=== PATIENT | female | born 1940 | race African-American/Black ===

== ENCOUNTER → 2016-07-21 | Outpatient (CLI) | payer OTHER, MEDICARE | LOC: RAD 04:24 | DX: Z12.31 Encounter for screening mammogram for malignant neoplasm of breast (principal) ==

== ENCOUNTER → 2016-07-28 | Outpatient (CLI) | payer OTHER, MEDICARE | LOC: ULTRA 10:37 | DX: N63 Unspecified lump in breast (principal) ==

== ENCOUNTER → 2016-08-02 | Outpatient (CLI) | payer OTHER, MEDICARE ==
--- NOTE | ~2016-08-02 | S ---
[facility] [place] [address] SURGICAL PATH RPT PROCEDURE Name: LIV JAMES Room #: REG BETITO Noreen.#: [id number] Admission: 08/02/16 Date of : 44 Discharge: Report #: [id number] Path Case #: [id number] PATHOLOGY REPORT COLLECTION DATE: 08/02/2016 RECEIVED DATE: 08/02/2016 SUBMITTING PHYS: Dr. Ricky Edmonds OTHER PHYS: Dr. Donaldo Parker SPECIMEN(S) RECEIVED: A.Lt breast at 2:00, 4 cm FN * * * * * * * * * * * * FINAL DIAGNOSIS: Breast, left breast 2:00, 4.0 cm from nipple, needle core biopsy: - Fibrocystic changes with dense stromal fibrosis, fibroadenoma associated with calcifications (measuring 8.0 mm in greatest dimensions), as well as adenosis and fat necrosis. - Negative for atypia or malignancy. COMMENT: Co-review: Dr. Nisa King (IUV:mgr; d/t: 08/03/16) PATHOLOGIST: Marianela Kuhn M.D. REPORT ELECTRONICALLY SIGNED BY: Marianela Kuhn M.D. DATE/TIME: 08/03/2016 14:06 * * * * * * * * * * * * GROSS PATHOLOGY: Received in formalin labeled "Liv James, left breast biopsy 2:00 4 cm," are multiple needle cores of yellow-hutton fibrofatty tissue measuring 3.2 x 2.2 x 0.4 cm in aggregate dimensions. The tissue is submitted in its entirety in cassette A1 and A2. The cold ischemic time is 5 minutes. The total formalin fixation time is 11 hours and 26 minutes. (CAA; 08/02/2016) CLINICAL HISTORY: Left breast mass INITIAL CPT CODE(S): A; [address] [facility] [place] [address] SURGICAL PATH RPT PROCEDURE Name: LIV JAMES Room #: REG Tanmay Sorto.#: [id number] Admission: 08/02/16 Date of : 44 Discharge: Report #: [id number] Path Case #: [id number] Professional services performed by [facility] at [address] , [place] [address] Technical services performed by [facility] at [address] [place] [address], [facility] [address] [address]. [facility] [address] [place] [address] PHONE: [phone] DIRECTOR: Twin Mitchell M.D. * * * END OF REPORT * * *
== END | disposition home or self-care (01) ==
LOC: ULTRA 07:47
DX: D24.2 Benign neoplasm of left breast (principal); N63 Unspecified lump in breast

== ENCOUNTER → 2017-10-25 | Outpatient (CLI) | payer OTHER, MEDICARE | LOC: RAD 01:30 | DX: Z12.31 Encounter for screening mammogram for malignant neoplasm of breast (principal) ==

== ENCOUNTER → 2018-11-28 | Outpatient (CLI) | payer OTHER, MEDICARE | LOC: RAD 00:39 | DX: Z12.31 Encounter for screening mammogram for malignant neoplasm of breast (principal) ==

== ENCOUNTER → 2020-02-12 | Outpatient (CLI) | payer OTHER, MEDICARE | LOC: BC 12:52 | PROVIDERS: ATTEND Emergency Medicine | DX: Z12.31 Encounter for screening mammogram for malignant neoplasm of breast (principal) ==

== ENCOUNTER → 2021-02-16 | Outpatient (CLI) | payer OTHER, MEDICARE | LOC: BC 10:40 | PROVIDERS: ATTEND Emergency Medicine | DX: Z12.31 Encounter for screening mammogram for malignant neoplasm of breast (principal); N64.89 Other specified disorders of breast ==